=== PATIENT | male | born 1985 | race Caucasian/White ===

== ENCOUNTER 2021-03-07 12:58 | Emergency (ER) | payer OTHER, SELFPAY ==
[2021-03-07] VITALS (7 sets, daily range): BP systolic 81–123; BP diastolic 45–85; PULSE 87–114; RESP 18–30; TEMP 37; O2SAT 95–100
--- NOTE | 2021-03-07 13:01 | PC.NURSE ---
d10 stopped at this time due to accucheck 159
[2021-03-07 13:03] LABS: Glucose Point of Care 159 mg/dl (65-105)
[2021-03-07 13:49] LABS: Basophils Absolute Auto 0.1 K/mm3 (0.0-0.1); Basophils Percent Auto 0.4 % (0.2-1.2); Eosinophils Percent Auto 0.1 % (0-4.4); Hematocrit 33.9 % (42.0-52.0); Hemoglobin 11.3 g/dL (14.0-18.0); Immature Granulocyte Absolute 0.41 K/mm3 (0.00-0.031); Immature Granulocyte Percent A 3.1 % (0-0.5); Lymphocytes Absolute Auto 1.34 K/mm3 (0.9-3.2); Lymphocytes Percent Auto 10.1 % (18.3-44.2); Mean Corpuscular HGB Conc 33.3 g/dl (32-36); Mean Corpuscular Hemoglobin 36.2 pg (26-34); Mean Corpuscular Volume 108.7 fl (80-100); Mean Platelet Volume 10.3 fl (7.4-10.4); Monocytes Absolute Auto 1.9 K/mm3 (0.1-0.6); Monocytes Percent Auto 14.5 % (2.6-8.5); Neutrophils Absolute Auto 9.6 K/mm3 (1.3-6.7); Neutrophils Percent Auto 71.8 % (45.5-73.1); Nucleated Red Blood Cells Absolute Auto 0.1 K/mm3 (0.0-0.012); Nucleated Red Blood Cells Perc 0.8 % (0.0-0.2); Platelet Count Result 172 k/mm3 (150-375); Red Blood Count 3.12 M/mm3 (4.6-6.20); Red Cell Distribution Width 17.2 % (11.5-14.5); White Blood Count 13.3 K/mm3 (4.5-10.0)
[2021-03-07 14:05] LABS: Ethanol < 10 mg/dL (<10)
[2021-03-07 14:09] LABS: Albumin Level 2.6 g/dL (3.5-5.1); Alkaline Phosphatase 238 U/L (38-126); Anion Gap 25 mmol/L (8-16); Bilirubin Direct 16.3 mg/dL (0-0.3); Bilirubin,Total 22.3 mg/dL (0.2-1.3); Blood Urea Nitrogen 15 mg/dL (9-20); Calcium 6.7 mg/dL (8.4-10.2); Carbon Dioxide 14 mmol/L (22-30); Chloride 83 mmol/L (98-107); Glucose 83 mg/dL (65-110); Potassium 4.1 mmol/L (3.4-5.0); Sodium 122 mmol/L (137-145)
[2021-03-07 14:14] LABS: Alanine Aminotransferase 194 U/L (4-50); Estimated CRCL calculation 15 ml/min; Estimated Glomerular Filt Rate 10
[2021-03-07 14:15] LABS: Aspartate Amino Transferase 1139 U/L (17-59)
[2021-03-07] MEDS: SODIUM CHLORIDE 0.9% IV 1,000 ML 999 ML IV CONT ×2 (14:24→14:25)
[2021-03-07 14:33] LABS: INR > 19.0; Partial Thromboplastin Time 165.7 SECONDS (22.3-36.8); Prothrombin Time > 120.0 Seconds (11.1-14.7)
--- NOTE | 2021-03-07 14:55 | ED.GENADULT ---
HPI - General Adult General Chief complaint: Alcohol Stated complaint: tremors - no etoh x 3days Time Seen by Provider: 03/07/21 13:03 History of Present Illness HPI narrative: Patient is a 35-year-old male who presents ER with dizziness. Reports he was getting up to walk to get some ice cream with his sister when he began to feel lightheaded like he might pass out and fallen yelled for help. He did not actually fall nor strike his head. Patient is alert and oriented x3 but seems to be a very poor historian. He is unsure when his skin began to turn yellow but thinks it has worsened over the last couple days. He had some outpatient lab work drawn yesterday for his PCP but he has not actually been in to see his PCP. Patient reports he drinks a pint and a half of hard alcohol daily. He reports he quit drinking 3 days ago because he felt like it was just time to stop. Related Data Home Medications Medication Instructions Recorded Confirmed albuterol sulfate INHALATION 03/08/21 famotidine 40 mg PO DAILY 03/08/21 03/08/21 montelukast 10 mg PO DAILY 03/08/21 03/08/21 Allergies Allergy/AdvReac Type Severity Reaction Status Date / Time No Known Allergies Allergy Verified 03/07/21 13:02 Review of Systems Review of Systems: All systems reviewed & are unremarkable except as noted in HPI and below Constitutional: Constitutional: Denies chills, Denies fever(s) and Reports weakness ENT: Denies nasal congestion and Denies sore throat Gastrointestinal: Gastrointestinal: Denies abdominal pain, Denies constipation, Denies diarrhea, Denies nausea and Denies vomiting Genitourinary: Genitourinary: Denies dysuria and Denies urinary frequency PMFSH Past Medical History Medical History (Updated 03/07/21 @ 23:42 by Mathew Moraes MD) No pertinent past medical history Surgical History Surgical History (Updated 03/07/21 @ 15:02 by Mathew Moraes MD) H/O eye surgery Social History Social History (Updated 03/07/21 @ 15:02 by Mathew Moraes MD) Alcohol intake: current Exam Narrative: GENERAL: Chronically ill-appearing, well-nourished, and in no acute distress. HEAD: Normocephalic, atraumatic. EYES: PERRL and EOMI. scleral icterus noted. ENT: Mucous membranes moist. CHEST: Clear to auscultation. No respiratory distress. HEART: Regular rate and rhythm. Normal peripheral pulses. ABDOMEN: Firm, nontender, nondistended. EXTREMITIES: Normal range of motion. 1+ edema. SKIN: Warm, dry, jaundice noted. NEURO: Alert and oriented x3. PSYCH: Normal mood and affect. Course Reevaluation(s) Reevaluation #1: Patient accepted by Dr. Serrano with hepatobiliary team at [facility]. Patient has been afebrile thus antibiotics not given. There is no reports or signs of trauma. Heme-negative stools with guaiac testing. Patient will be hydrated. He is also received intermittent Valium for agitation given his withdrawal. He received a dose of lactulose. Awaiting a bed at [facility]. Blood pressure seems to improves with the fluids. Attempted to educate patient on the severity of his illness but due to encephalopathy and withdrawal he does not seem to understand. His mother has been at his bedside and is keenly aware that patient's condition deteriorated any time. Date: 03/07/21 Time: 23:41 Reevaluation #2: Patient continues to have soft blood pressures throughout the evening and into this morning. He is received an additional liter of fluid. He has received 4 L of IV fluid and 1 L of lactated Ringer's. He has received some lactulose for encephalopathy yesterday. He seems more confused. Patient has a bed at [facility]. I discussed with patient's parents that I feel that he is actively dying but that if there is anything that can be done hepatobiliary at [facility] may be able to add something. Date: 03/08/21 Time: 14:02 Vital Signs Vital signs: Vital Signs Temperature 98.6 F 03/07/21 12:54 Pulse Rate 109 H 03/07/21 12:54 Respiratory Rate 23 H 02/08
[2021-03-07 15:26] LABS: Ammonia 57 umol/L (9-30)
[2021-03-07 16:11] LABS: Creatine Kinase 495 U/L (55-170)
[2021-03-07] MEDS: LACTATED RINGERS 1,000 ML 999 ML IV CONT (16:42)
--- NOTE | 2021-03-07 16:48 | PC.NURSE ---
md aware that pt unable to void and straight cath did not produce more than 3-5 cc dark brown urine
[2021-03-07] MEDS: diazePAM INJ (*CRX) 10 MG/2 ML SYRINGE 5 MG IV PUSH ×2 (17:51→18:44)
[2021-03-07] MEDS: LACTULOSE 20 GM/30 ML UDC (18:01)
--- NOTE | 2021-03-07 19:36 | PC.NURSE ---
bed alarm under pt's buttocks. mom at bedside.
--- NOTE | 2021-03-07 21:00 | PC.NURSE ---
per EDP Kamari no dose required of valium
[2021-03-07] MEDS: SODIUM CHLORIDE 0.9% IV 1,000 ML 125 ML IV CONT (22:00)
[2021-03-08] VITALS (20 sets, daily range): BP systolic 83–103; BP diastolic 41–62; PULSE 87–107; RESP 21–40; TEMP 36.3; O2SAT 94–100
--- NOTE | 2021-03-08 03:07 | PC.NURSE ---
spoke with evon from transfer center at this time. no beds available.
--- NOTE | 2021-03-08 07:48 | PC.NURSE ---
Assumed care of patient from [facility]. Pt sleeping at this time. Updated visitor on status of bed. Ordered breakfast tray
--- NOTE | 2021-03-08 08:20 | PC.NURSE ---
Pt given meal tray. Attempted to wake pt up. Pt was agitated and grabbing at this RN.
--- NOTE | 2021-03-08 10:39 | PC.NURSE ---
Jan called with a bed. Pt will be transfered to [id number] bed 2
[2021-03-08] MEDS: SODIUM CHLORIDE 0.9% IV 1,000 ML 999 ML IV CONT (13:15)
== END 2021-03-08 14:22 | disposition short-term general hospital (02) ==
PROVIDERS: Emergency Medicine; Emergency Provider Emergency Medicine; PCP Physician Assistant
DX: K70.40 Alcoholic hepatic failure without coma (principal); R79.1 Abnormal coagulation profile
CPT/HCPCS: 36415; 80048; 80076; 80307; 82140; 82550; 82948; 85025; 85610; 85730; 86850; 86900; 86901; 96361; 96374; 96376; 99285; A9270; J3360; J7030; J7120